=== PATIENT | male | born 2000 | race Caucasian/White ===

== ENCOUNTER 2021-07-17 14:09 | Inpatient (IN) | payer SELFPAY ==
[2021-07-17 14:13] VITALS: BP 156/92; PULSE 70; RESP 18; TEMP 36.8; O2SAT 99; BMI 22.9
--- NOTE | 2021-07-17 14:16 | W.ED.GENADLT ---
HPI - General Adult General: Chief complaint: Psychiatric Symptoms Stated complaint: PSYCH EVAL Time Seen by Provider: 07/17/21 14:15 History of Present Illness: HPI narrative: HPI: [21]yo patient w/ hx of depression BIBA for suicidal ideation with plan. Per EMS and mom, patient had a handgun at home and was planning to shoot himself. On arrival, the patient is AAOx3 and cooperative with my evaluation. No focal complaints of chest pain, shortness of breath, palpitations, N/V, focal GI/ complaints. +SI per patient. No complaints of hallucinations. Onset: chronic Duration: ongoing Location: home Severity: severe Review of Systems Narrative: Constitutional: No fever, no chills. HEENT: No vision changes CV: No chest pain, no palpitations PULM: No productive cough, no dyspnea. GI: No abdominal pain, no N/V/D. : No dysuria MSKEL: No muscle pain SKIN: No new rashes, no lesions. NEURO: No headache, no focal weakness. HEME: No visible bruises PSYCH: Depressed mood. +SI Physical Exam Narrative: EXAM NARRATIVE: Head: Atraumatic Eyes: PERRL, conjunctiva without injection, eyes tracking ENT: Mucous membrane moist NECK: Supple without lymphadenopathy LUNGS: LCTAB CV: RRR ABDOMEN: Soft, nontender EXTREMITY: Normal ROM SKIN: No rash or erythema NEURO: Awake and alert. No focal weakness PSYCH: Cooperative mood and affect. Course Vital Signs: Vital signs: Vital Signs Temperature 98.1 F 07/18/21 20:53 Pulse Rate 75 07/18/21 20:53 Respiratory Rate 17 07/18/21 20:53 Blood Pressure 90/57 07/18/21 20:53 Pulse Oximetry 97 07/18/21 20:53 MDM - General Adult MDM Narrative: Medical decision making narrative: [21]yo patient w/ hx of depression presenting for suicidal ideation with plan. HDS, exam within normal limit Thoughts are linear and organized, and the patient has no AH/VH, or HI. Clinically the patient displays no overt toxidrome; they are well appearing, with low suspicion for toxic ingestion given history and exam. Symptoms unlikely 2/2 anemia, hypothyroidism, infection, or ICH. Workup: CBC, CMP, Lipase, salicylate/tylenol Lab findings: wnl [4:16] On reassessment, labs and workup wnl. Patient is hemodynamically stable with no acute medical complaints. Case discussed with psychiatric provider Dr. Michael Lopez at [facility] psych inpatient with recommendation for admission. Story of suicidal ideation with plan confirmed with mom. Patient has access .22 caliber at home and plans to kill himself. Disposition: Psych Lab Data: Labs: Lab Results 07/17/21 07/17/21 07/17/21 15:09 15:09 15:37 WBC 10.6 10^3/uL H 10 ^3/uL (4.0-10.0) RBC 5.19 10^6/uL 10^6 /uL (4.1-5.3) Hgb 15.3 g/dL g/dL (11.7-16.6) Hct 46.0 % % (42.0-52.0) MCV 88.6 fl fl (80-94) MCH 29.5 pg pg (28.0-34.0) MCHC 33.3 g/dL g/dL (30.0-36.0) RDW 12.5 % % (12.1-15.1) Plt Count 244 10^3/cmm 10^3 /cmm (130-400) MPV 10.4 fL fL (7.4-10.4) Neut % (Auto) 77.4 % % Lymph % (Auto) 16.6 % % [place] % (Auto) 4.1 % % Eos % (Auto) 0.8 % % Baso % (Auto) 0.8 % % Neut # (Auto) 8.23 10^3/uL H 10 ^3/uL (1.8-7.7) Lymph # (Auto) 1.8 10^3/uL 10^3/ uL (0.8-4.8) [place] # (Auto) 0.4 10^3/uL 10^3/ uL (0.2-0.9) Eos # (Auto) 0.1 10^3/uL 10^3/ uL (0.0-0.8) Baso # (Auto) 0.1 10^3/uL 10^3/ uL (0.0-0.1) Nucleated RBC % (a uto) 0 % % Nucleated RBCs # 0.0 /100WBC /100W BC Sodium 137 mmol/L mmol/L (136-145) Potassium 3.8 mmol/L mmol/L (3.5-5.1) Chloride 101 mmol/L mmol/L (98-107) Carbon Dioxide 24 mmol/L mmol/L (22-29) Anion Gap 15.8 (5-19) BUN 7 mg/dL mg/dL (6-20) Creatinine 0.8 mg/dL mg/dL (0.7-1.2) GFR Calculation 122.0 mL/min mL/m in (90-130) Glucose 126 mg/dL H mg/dL (65-115) Calculated Osmolal ity 284 mOsm/kg L mOs m/kg (285-295) Calcium 9.5 mg/dL mg/dL (8.5-10.5) Total Bilirubin 0.4 mg/dL mg/dL (0.15-1.2) AST 16 U/L U/L (0-40) ALT 11 U/L U/L (0-41) Alkaline Phosphata se 93 IU/L IU/L (40-130) Total Protein 7.3 g/dL g/dL (6.6-8.7) Albumin 4.6 g/dL g/dL (3.5-5.2) Globulin 2.7 g/dL g/dL (1.3-4.6) Lipase 23 U/L U/L (13-60) Salicylates < 0.3 mg/dL L mg/ dL (3-10) Urine Opiates Scre en Negative ng/mL ng /mL (Negative) Acetaminophen < 5.0 ug/mL L ug/ mL (10-30) Ur Barbiturates Sc reen Negative ng/mL ng /mL (Negative) Ur Phencyclidine S crn Negative ng/mL ng /mL (Negative) Ur Amphetamines Sc reen Negative ng/mL ng /mL (Negative) U Benzodiazepines Scrn Negative ng/mL ng /mL (Negative) Urine Cocaine Scre en Negative ng/mL ng /mL (Negative) U Marijuana (THC) Screen Negative ng/mL ng /mL (Negative) Discharge Plan Discharge Patient Disposition: Admitted As Inpatient Admit Provider: Michale Fishre Clinical Impression: Depression with suicidal ideation Condition: Stable Coding Level of Care Code ED Product Support Engineer for Tamica Rodrigez
[2021-07-17 14:22] VITALS: BP 156/92; PULSE 76; RESP 16; O2SAT 98
[2021-07-17 15:15] LABS: Basophils # 0.1 10^3/uL (0.0-0.1); Basophils % 0.8 %; Eosinophils # 0.1 10^3/uL (0.0-0.8); Eosinophils % 0.8 %; Hemoglobin 15.3 g/dL (11.7-16.6); Lymphocytes # 1.8 10^3/uL (0.8-4.8); Lymphocytes % 16.6 %; Mean Corpuscular HGB Conc 33.3 g/dL (30.0-36.0); Mean Corpuscular Hemoglobin 29.5 pg (28.0-34.0); Mean Corpuscular Volume 88.6 fl (80-94); Mean Platelet Volume 10.4 fL (7.4-10.4); Monocytes # 0.4 10^3/uL (0.2-0.9); Monocytes % 4.1 %; Neutrophils # 8.23 10^3/uL (1.8-7.7); Neutrophils % 77.4 %; Nucleated Red Blood Cells % 0 %; Platelet Count 244 10^3/cmm (130-400); Red Blood Count 5.19 10^6/uL (4.1-5.3); Red Cell Distribution Width 12.5 % (12.1-15.1); White Blood Count 10.6 10^3/uL (4.0-10.0)
[2021-07-17 15:44] LABS: Alanine Aminotransferase 11 U/L (0-41); Albumin Level 4.6 g/dL (3.5-5.2); Alkaline Phosphatase 93 IU/L (40-130); Anion Gap 15.8 (5-19); Aspartate Amino Transferase 16 U/L (0-40); Blood Urea Nitrogen 7 mg/dL (6-20); Calcium 9.5 mg/dL (8.5-10.5); Carbon Dioxide 24 mmol/L (22-29); Chloride 101 mmol/L (98-107); Creatinine Clr Calc Pharmacy 150.4648; Globulin 2.7 g/dL (1.3-4.6); Glucose 126 mg/dL (65-115); Lipase 23 U/L (13-60); Osmolality Calculated 284 mOsm/kg (285-295); Potassium 3.8 mmol/L (3.5-5.1); Sodium 137 mmol/L (136-145); Total Bilirubin 0.4 mg/dL (0.15-1.2); Total Protein 7.3 g/dL (6.6-8.7)
[2021-07-17 15:49] LABS: Acetaminophen < 5.0 ug/mL (10-30); Salicylate < 0.3 mg/dL (3-10)
[2021-07-17 17:09] LABS: Amphetamines Screen Urine Negative (Negative); Barbiturates Screen Urine Negative (Negative); Benzodiazepines Screen Urine Negative (Negative); Cocaine Screen Urine Negative (Negative); Opiate Screen Urine Negative (Negative); PCP Screen Urine Negative (Negative); THC Screen Urine Negative (Negative)
[2021-07-17 17:31] VITALS: BP 136/87; PULSE 66; RESP 16; O2SAT 97
[2021-07-17 17:43] VITALS: BP 144/84; PULSE 82; RESP 20; TEMP 36.6; O2SAT 96
[2021-07-17] MEDS: nicotine 2 mg Gum BUCCAL (19:45)
[2021-07-17 20:15] VITALS: BP 125/79; PULSE 61; RESP 18; TEMP 36.7; O2SAT 98
[2021-07-17] MEDS: trazodone 50 mg Tablet PO (21:33)
[2021-07-17] MEDS: hyDROXYzine 25 mg Capsule 50 MG PO (21:33)
--- NOTE | 2021-07-17 21:40 | PC.NURSE ---
Trazodone 50mg PO and vistaril 50 mg PO given at patient request for sleep and anxiety
[2021-07-18 06:00] VITALS: BP 125/79; PULSE 61; RESP 18; TEMP 36.7; O2SAT 98
[2021-07-18] MEDS: nicotine 2 mg Gum BUCCAL ×4 (09:12→20:53)
[2021-07-18] MEDS: hyDROXYzine 25 mg Capsule 50 MG PO ×2 (09:47→20:53)
--- NOTE | 2021-07-18 09:49 | PC.NURSE ---
prn [id number] Administered 50mg Vistaril for pt c/o anxiety. will continue to monitor pt.
--- NOTE | 2021-07-18 11:31 | P.HP_ITS ---
Providers/Chief Complaint Admitting Physician: Michael Fisher MD Chief Complaint: PSYCH EVAL HPI NPU History of Present Illness Edward Jennings is a 21 year old male who presented to the emergency department with the following report: chief complaint: Psychiatric Symptoms Stated complaint: PSYCH EVAL Time Seen by Provider: 07/17/21 14:15 History of Present Illness: HPI narrative: HPI: [21]yo patient w/ hx of depression BIBA for suicidal ideation with plan. Per EMS and mom, patient had a handgun at home and was planning to shoot himself. On arrival, the patient is AAOx3 and cooperative with my evaluation. No focal complaints of chest pain, shortness of breath, palpitations, N/V, focal GI/ complaints. +SI per patient. No complaints of hallucinations. Onset: chronic Duration: ongoing Location: home Severity: severe. He was admitted to the neuropsychiatric unit for definitive treatment of those issues. He presents today reporting that he has never had any psychiatric inpatient services for outpatient services before and has never been on medications. He reports he smokes about half a pack of cigarettes a day, has been drinking heavily in the past but says he quit, denies marijuana or any other illicit drug use. He is never been to rehab and had a DUI. He denies ever having a suicide attempt. He reports that he is here because he said too much. He reports he normally keeps his thoughts to himself and that someone asked him about his thoughts and he was and now he is here. He reports that he has suicidal thoughts from time to time and the depression including low mood, feelings of helplessness, hopelessness and worthlessness sleep difficulties feelings of guilt etc. occur without any clear nidus for those feelings. He reports he normally gets over it and he just was not getting over it. He reports currently is sleeping pretty good but because he thinks he works a lot. We discussed the risk benefits and alternatives of a trial of Prozac and he understood and agreed to proceed as documented in this note. Psychiatric history: As above. Substance abuse history: As above. Family history: He endorses mental health and addiction issues on his father's the family but denies any suicide attempt or completions on either side of the family. Developmental history. There were no problems with the , or delivery, learned to walk and talk and met developmental milestones on time, and denies need for speech therapy, learning support, emotional support or special education classes. Psychosocial history: He reports his parents were together when he was born and that he has an older sibling that is a product of that same union. Neither of his parents have any other children with anyone else. He reports that his childhood was all right I guess and he denies any emotional physical or sexual abuse. He denies any other history of trauma. He reports he graduated from high school. He endorses being heterosexual with only short history of relationships. He never , he never had children, he never in the and endorses being a Mu-Is[employer]. He reports he is worked for over a year and a [employer]. He currently lives in a house with his mother. Legal history: He denies any legal history or peril. Medical history: Denied. Please see ED note for additional details. Meds NPU Home Medications Medication Instructions Recorded Confirmed Last Taken Type escitalopram oxalate 20 mg PO QAM 07/17/21 07/17/21 07/17/21 07:30 History Allergies Allergy/AdvReac Type Severity Reaction Status Date / Time No Known Allergies Allergy Unverified 07/17/21 16:20 Mental Status Exam MSE Comments: This is a well-nourished well-developed white male in hospital scrubs with limited grooming and eye contact. No abnormal movements. Vocational Nurse perative with exam in mild distress. Speech was decreased rate and volume. Mood described as depressed affect congruent. Thought process organized. Thought content: Patient denied suicidal or homicidal ideation, he endorsed paranoia and he did appear somewhat guarded, he denied auditory or visual hallucinations. Attention and concentration were intact and memory appeared reliable but never formally tested. He is alert and oriented x3. Insight and judgment appear fair, impulse control appears limited. Vitals/I&O/Wt Last Vital Signs Temp 98.1 F 07/17/21 20:15 Pulse 61 07/17/21 20:15 Resp 18 07/17/21 20:15 BP 125/79 07/17/21 20:15 Pulse Ox 98 07/17/21 20:15 Weight last 48 hrs Weight 72.575 kg Data NPU : 07/17/21 15:09 07/17/21 15:09 A&P Assessment and plan (1) Depression with suicidal ideation: Status: Acute Additional A&P Information This is a 21-year-old white male with a long history of depression without treatment or any medication interventions who presents having suicidal thoughts and being open to initiating treatment. 1. Continue current medication. Start Prozac 20 mg p.o. every morning. 2. Continue every 15 minute checks for safety. 3. Encourage individual, group and milieu therapies. 4. Encourage sober living treatment after discharge at the highest level of care to which he is willing to commit. Involuntary Hold Information 96 Hour Hold: 96 Hour Involuntary Admission: Yes 96 Hour Hold Ending Date: 07/23/21 96 Hour Hold Ending Time: 14:20 Attestations NPU Medical Necessity Statement*: Inpatient hospitalization is medically necessary and the clinically appropriate intervention at this time. We will monitor medications and make changes as indicated. Patient will be in the hospital for over two midnights. Likely length of stay 3 to 5 days. Coding Level of Care Code Acute Restaurant Area Director for Tamica Rodrigez Diagnoses Depression with suicidal ideation F32.9; R45.851
[2021-07-18 14:00] VITALS: BP 122/69; PULSE 58; RESP 17; TEMP 36.6; O2SAT 99
[2021-07-18] MEDS: OLANZapine 5 mg ODT PO (14:09)
[2021-07-18] MEDS: fluoxetine 20 mg Capsule PO (16:31)
[2021-07-18 20:53] VITALS: BP 90/57; PULSE 75; RESP 17; TEMP 36.7; O2SAT 97
[2021-07-18] MEDS: trazodone 50 mg Tablet PO (20:53)
--- NOTE | 2021-07-19 00:01 | PC.NURSE ---
PRN Visteril 50mg pO given for anxiety, Nicotine gum provided
--- NOTE | 2021-07-19 00:01 | PC.NURSE ---
PM Assessment Heart and lung sounds WNL. Denies pain, Denies SI/HI. Reports less Depression, reports anxiety. PRN given for anxiety. Pt asked for nicotine gum. He was in his room resting at the beginning of shift, cooperative with staff during assessment. Denies SI/HI/AH/VH at this time. Pt denies pain. Pt went to dayroom for snack, came to the nursing desk for medications. Pt returned to his room and is currently resting.
[2021-07-19 06:00] VITALS: BP 90/57; PULSE 75; RESP 17; TEMP 36.7; O2SAT 97
[2021-07-19] MEDS: nicotine 2 mg Gum BUCCAL ×3 (08:30→21:29)
[2021-07-19] MEDS: fluoxetine 20 mg Capsule PO (08:44)
[2021-07-19] MEDS: hyDROXYzine 25 mg Capsule 50 MG PO ×2 (11:06→21:29)
[2021-07-19 14:00] VITALS: BP 123/70; PULSE 88; RESP 16; TEMP 36.4; O2SAT 98
[2021-07-19] MEDS: OLANZapine 5 mg ODT PO (18:03)
--- NOTE | 2021-07-19 18:46 | P.PN_ITS ---
Subjective NPU Subjective: Interval history: Patient presents today reporting that he still feeling depressed but feels like the medication might be helping a little. We discussed the process going forward and the likelihood that in 2 or 3 days he would be able to discharge if he is feeling better. He was okay with that and continues to be somewhat isolative. Mental Status Exam MSE Comments: This is a well-nourished well-developed white male in hospital scrubs with limited grooming and eye contact. No abnormal movements. Cooperative with exam in mild distress. Speech was decreased rate and volume. Mood described as depressed, affect congruent. Thought process organized. Thought content: Patient denied suicidal or homicidal ideation, he endorsed paranoia and he did appear somewhat guarded, he denied auditory or visual hallucinations. Attention and concentration were intact and memory appeared reliable but never formally tested. He is alert and oriented x3. Insight and judgment appear fair, impulse control appears limited. Vitals/I&O/Wt Last Vital Signs Temp 97.9 F 07/19/21 20:58 Pulse 58 L 07/19/21 20:58 Resp 19 H 07/19/21 20:58 BP 116/73 07/19/21 20:58 Pulse Ox 99 07/19/21 20:58 Data NPU : 07/17/21 15:09 07/17/21 15:09 A&P Additional A&P Information (1) Depression with suicidal ideation: This is a 21-year-old white male with a long history of depression without treatment or any medication interventions who presents having suicidal thoughts and being open to initiating treatment. 1. Continue current medication. 2. Continue every 15 minute checks for safety. 3. Encourage individual, group and milieu therapies. 4. Encourage sober living treatment after discharge at the highest level of ca re to which he is willing to commit. Involuntary Hold Information 96 Hour Hold: 96 Hour Involuntary Admission: Yes 96 Hour Hold Ending Date: 07/23/21 96 Hour Hold Ending Time: 14:20 Attestations NPU Medical Necessity Statement*: Inpatient hospitalization is medically necessary and the clinically appropriate intervention at this time. We will monitor medi cations and make changes as indicated. Likely length of stay 2-4 days. Coding Level of Care Code Acute Dot Compliance Manager for Tamica Rodrigez
[2021-07-19 20:58] VITALS: BP 116/73; PULSE 58; RESP 19; TEMP 36.6; O2SAT 99
[2021-07-20 06:00] VITALS: BP 108/64; PULSE 55; RESP 18; TEMP 36.7; O2SAT 98
--- NOTE | 2021-07-20 08:01 | PM.NPN ---
Subjective NPU Subjective: Interval history: Patient presents today reporting that he is doing a little better each day. He continues to deny any problems with the Prozac or any side effects or concerns. He continues to be somewhat isolative but does endorse that he feels like he today is getting a little better. We discussed Dr. Dang coming tomorrow and making sure that he was feeling safe for discharge when the time for discharge came. Mental Status Exam MSE Comments: This is a well-nourished well-developed white male in hospital scrubs with limited grooming and eye contact. No abnormal movements. Cooperative with exam in mild distress. Speech was decreased rate and volume. Mood described as depressed, affect congruent. Thought process organized. Thought content: Patient denied suicidal or homicidal ideation, he endorsed paranoia and he did appear somewhat guarded, he denied auditory or visual hallucinations. Attention and concentration were intact and memory appeared reliable but never formally tested. He is alert and oriented x3. Insight and judgment appear fair, impulse control appears limited. Vitals/I&O/Wt Last Vital Signs Temp 98.1 F 07/20/21 06:00 Pulse 55 L 07/20/21 06:00 Resp 18 07/20/21 06:00 BP 108/64 07/20/21 06:00 Pulse Ox 98 07/20/21 06:00 Weight last 48 hrs Weight 76.385 kg Data NPU : 07/17/21 15:09 07/17/21 15:09 A&P Additional A&P Information (1) Depression with suicidal ideation: This is a 21-year-old white male with a long history of depression without treatment or any medication interventions who presents having suicidal thoughts and being open to initiating treatment. 1. Continue current medication. 2. Continue every 15 minute checks for safety. 3. Encourage individual, group and milieu therapies. 4. Encourage sober living treatment after discharge at the highest level of care to which he is willing to commit. Involuntary Hold Information 96 Hour Hold: 96 Hour Involuntary Admission: Yes 96 Hour Hold Ending Date: 07/23/21 96 Hour Hold Ending Time: 14:20 Attestations NPU Medical Necessity Statement*: Inpatient hospitalization is medically necessary and the clinically appropriate intervention at this time. We will monitor medications and make changes as indicated. Likely length of stay 1-3 days. Coding Level of Care Code Acute Outside Medical Sales Representative for Tamica Rodrigez
[2021-07-20] MEDS: fluoxetine 20 mg Capsule PO (08:28)
[2021-07-20] MEDS: nicotine 2 mg Gum BUCCAL ×2 (08:30→17:12)
[2021-07-20 14:00] VITALS: BP 115/62; PULSE 62; RESP 16; TEMP 36.3; O2SAT 99
[2021-07-20] MEDS: hyDROXYzine 25 mg Capsule 50 MG PO ×2 (14:39→21:20)
--- NOTE | 2021-07-20 14:40 | PC.NURSE ---
Addendum entered by Susannah Olivier LPN 07/20/21 16:12: PRN MED SOMEWHAT EFFECTIVE NO FURTHER C/O ANXIETY, PT PARENTS DID COME TO VISIT TODAY Original Note: PRN VISTARIL 50 MG GIVEN PO PER PT C/O STATED ANXIETY. PT IS ISOLATING TO ROOM, NO OUTWARD S/S OF ANXIETY NOTED
[2021-07-20 20:10] VITALS: BP 115/77; PULSE 63; RESP 20; TEMP 36.7; O2SAT 99
--- NOTE | 2021-07-20 21:20 | PC.NURSE ---
pt requested anxiety med, vistaril 50mg po given.
--- NOTE | 2021-07-20 22:30 | PC.NURSE ---
pt resting quietly
[2021-07-21 06:00] VITALS: BP 113/70; PULSE 54; RESP 16; TEMP 36.4; O2SAT 99
[2021-07-21] MEDS: fluoxetine 20 mg Capsule PO (08:41)
[2021-07-21 14:00] VITALS: BP 124/73; PULSE 70; RESP 16; TEMP 36.9; O2SAT 99
--- NOTE | 2021-07-21 17:19 | P.DS_ITS ---
Diagnoses at Discharge Discharge Diagnosis (1) Depression with suicidal ideation: Status: Resolved Reason for Visit Reason for Visit: PSYCH EVAL Brief History: Edward Jennings is a 21 year old male who presented to the emergency department with the following report: History of Present Illness: [21]yo patient w/ hx of depression BIBA for suicidal ideation with plan. Per EMS and mom, patient had a handgun at home and was planning to shoot himself. On arrival, the patient is AAOx3 and cooperative with my evaluation. No focal complaints of chest pain, shortness of breath, palpitations, N/V, focal GI/ complaints. +SI per patient. No complaints of hallucinations. He was admitted to the neuropsychiatric unit for definitive treatment of those issues. He presents today reporting that he has never had any psychiatric inpatient services for outpatient services before and has never been on medications. He reports he smokes about half a pack of cigarettes a day, has been drinking heavily in the past but says he quit, denies marijuana or any other illicit drug use. He is never been to rehab and had a DUI. He denies ever having a suicide attempt. He reports that he is here because he said too much. He reports he normally keeps his thoughts to himself and that someone asked him about his thoughts and he was and now he is here. He reports that he has suicidal thoughts from time to time and the depression including low mood, feelings of helplessness, hopelessness and worthlessness sleep difficulties feelings of guilt etc. occur without any clear nidus for those feelings. He reports he normally gets over it and he just was not getting over it. He reports currently is sleeping pretty good but because he thinks he works a lot. We discussed the risk benefits and alternatives of a trial of Prozac and he understood and agreed to proceed as documented in this note. Hospital Course Hospital Course The patient was admitted to the neuropsychiatric unit for definitive treatment of these issues. On the unit he slowly acclimated to the individual, group and milieu therapies. There were some depression and hopelessness present initially which resolved with the with the addition of Prozac 20 mg daily, and with the support and structure of the unit. He was receptive to treatment team recomm endations and showed modest improvement and was able to contract for safety prior to discharge. During the hospitalization, patient had routine laboratory studies which were within normal limits except for few outliers. Additionally there was a general medical evaluation which was also within normal limits and revealed no new acute processes. Discharge Summary: At the time of discharge, psychosis and lethality were denied. Mood and anxiety were well managed. Patient endorsed a plan to avoid all drugs of abuse and follow-up with the aftercare recommendations of the treatment team. Patient was evaluated and deemed to be absent credible lethality, and had achieved the maximum benefit from an inpatient hospitalization, so was discharged. Involuntary Hold Information 96 Hour Hold: 96 Hour Involuntary Admission: Yes 96 Hour Hold Ending Date: 07/23/21 96 Hour Hold Ending Time: 14:20 Mental Status Exam MSE Comments: This is a well-nourished well-developed white male in hospital scrubs with limited grooming and eye contact. No abnormal movements. Cooperative with exam in mild distress. Speech was decreased rate and volume. Mood described as depressed, affect congruent. Thought process organized. Thought content: Patient denied suicidal or homicidal ideation, he endorsed paranoia and he did appear somewhat guarded, he denied auditory or visual hallucinations. Attention and concentration were intact and memory appeared reliable but never formally tested. He is alert and oriented x3. Insight and judgment appear fair, impulse control appears limited. Discharge Data Vitals: Last Vital Signs Temp 97.5 F L 07/21/21 06:00 Pulse 54 L 07/21/21 06:00 Resp 16 07/21/21 06:00 BP 113/70 07/21/21 06:00 Pulse Ox 99 07/21/21 06:00 Discharge Plan Discharge Patient Disposition: Home Condition: Stable Prescriptions: Continued escitalopram oxalate 20 mg tablet 20 mg PO QAM 30 Days Qty: 30 RF: 0 Discharge Orders: Discharge Order (Routine); Ordered 07/21/21 Ordered By: Alexander Dang Referrals: [facility] [Other] (Medication management) Akhil Fry FNP [Referring] - Discharge Diet: Advance as tolerated Discharge Activity: Resume usual activity Patient Instructions: Depression, Opioid Safety Discharge Attestations NPU Time Spent in Discharge Care*: less than 30 min Specific Discharge Activities: Specific discharge activities: educating patient, discussing with renal case manager/social workers/dc planners, documenting/other paperwork and evaluating patient/reviewing data Status at Discharge: Cognitive status at discharge: cognitively intact , Behavioral status at discharge: cooperative , Functional status at discharge: independent ambulation Overall status at discharge: patient is back to baseline Coding Level of Care Code Acute [facility]g [facility] note Diagnoses Depression with suicidal ideation F32.9; R45.851
[2021-07-21 17:21] VITALS: BP 113/70; PULSE 54; RESP 16; TEMP 36.4; O2SAT 99
== END 2021-07-21 18:34 | disposition home or self-care (01) | DRG 881 ==
LOC: ER 14:30 → NP 17:07
PROVIDERS: Admitting Provider Psychiatry & Neurology Psychiatry; Emergency Provider Emergency Medicine; Visit Provider Psychiatry & Neurology Psychiatry
DX: F32.9 Major depressive disorder, single episode, unspecified (principal); R45.851 Suicidal ideations; F17.210 Nicotine dependence, cigarettes, uncomplicated
CPT/HCPCS: 80053; 80306; 80307; 83690; 85025; 97150; 97165; 99285; G0378